=== PATIENT | male | born 1960 | race Caucasian/White ===

== ENCOUNTER 2019-05-16 11:40 | Day surgery (SDC) | payer MEDICAID ==
[~2019-05-16] VITALS: Ht 193 cm; Wt 104.5 kg
[~2019-05-16 11:40] MED LIST: ACET-2119 PO; ASPI-1265 PO; CLOT15CR5 TP; DOCU-20 PO; DOXA1TAB PO; ESCI20TA38 PO; OXYB15TA PO; PROM25TA14 PO; RISP1TAB3 PO; TRAZ-251 PO; TRIA15CR62 TP
[2019-05-16 11:50] VITALS: BP 128/77
[2019-05-16] MEDS ORDERED: DOXA1TAB2 PO (12:24)
[2019-05-16] MEDS ORDERED: SIMV10TA6 PO (12:25)
[2019-05-16] MEDS ORDERED: fentaNYL/PF 50MCG/1 ML 2ML syringe ONE (12:39)
[2019-05-16] MEDS ORDERED: MIDAZolam 5mg/5ml vial ONE (12:40)
[2019-05-16 13:40] VITALS: BP 127/71
[2019-05-16 13:50] VITALS: BP 131/80
[2019-05-16 14:00] VITALS: BP 127/75
== END 2019-05-16 14:25 | disposition home or self-care (01) ==
LOC: GI LAB 11:40
PROVIDERS: ATTEND Internal Medicine Gastroenterology
DX: Z12.11 Encounter for screening for malignant neoplasm of colon (principal); Z86.010 Personal history of colon polyps; K64.8 Other hemorrhoids
CPT/HCPCS: 45378; 99152; J2250; J3010; J7040; A4620

== ENCOUNTER 2019-07-04 12:06 | Day surgery (SDC) | payer MEDICAID ==
[~2019-07-04] VITALS: Ht 193 cm; Wt 100.0 kg
[~2019-07-04 12:06] MED LIST changes: -ACET-2119 PO; -CLOT15CR5 TP; -DOCU-20 PO; +DOXA1TAB2 PO; -PROM25TA14 PO; -RISP1TAB3 PO; +SIMV10TA6 PO; -TRIA15CR62 TP
[2019-07-04 12:16] VITALS: BP 138/84
[2019-07-04] MEDS ORDERED: MIDAZolam 5mg/5ml vial ONE (12:16)
[2019-07-04] MEDS ORDERED: fentaNYL/PF 50MCG/1 ML 2ML syringe ONE (12:16)
[2019-07-04 13:41] VITALS: BP 127/76
[2019-07-04 13:51] VITALS: BP 129/77
[2019-07-04 14:01] VITALS: BP 133/82
[2019-07-04 14:11] VITALS: BP 129/68
== END 2019-07-04 14:39 | disposition home or self-care (01) ==
LOC: GI LAB 12:06
PROVIDERS: ATTEND Internal Medicine Gastroenterology
DX: Z09 Encounter for follow-up examination after completed treatment for conditions other than malignant neoplasm (principal); K63.5 Polyp of colon; D12.8 Benign neoplasm of rectum; K63.89 Other specified diseases of intestine; Q43.8 Other specified congenital malformations of intestine; K64.8 Other hemorrhoids; Z86.010 Personal history of colon polyps
CPT/HCPCS: 45380; 45385; 99152; 99153; C1773; J2250; J3010; J7040; A4620